=== PATIENT | male | born 1995 | race Caucasian/White ===

== ENCOUNTER 2019-02-18 14:27 | Emergency (ER) | payer MEDICAID ==
[~2019-02-18] VITALS: Ht 172.7 cm; Wt 124.3 kg
[2019-02-18 14:38] VITALS: Ht 172.7 cm; Wt 124.3 kg
[2019-02-18 19:01] VITALS: BP 139/90
== END 2019-02-18 19:01 | disposition home or self-care (01) ==
LOC: ED 14:27
DX: M25.531 Pain in right wrist (principal)
CPT/HCPCS: J1885